=== PATIENT | male | born 1955 | race Caucasian/White ===

== ENCOUNTER 2018-03-10 09:48 | Emergency (ER) | payer OTHER | END 2018-03-10 11:32 | disposition home or self-care (01) | LOC: M ED 09:48 | DX: S93.601A Unspecified sprain of right foot, initial encounter (principal); W11.XXXA Fall on and from ladder, initial encounter; Y92.89 Other specified places as the place of occurrence of the external cause; E78.5 Hyperlipidemia, unspecified; Z98.890 Other specified postprocedural states; Z87.891 Personal history of nicotine dependence; Z88.8 Allergy status to other drugs, medicaments and biological substances; Z79.899 Other long term (current) drug therapy; M25.772 Osteophyte, left ankle; M77.31 Calcaneal spur, right foot; M25.771 Osteophyte, right ankle | CPT/HCPCS: 73610 ==

== ENCOUNTER → 2019-12-25 | Outpatient (CLI) | payer SELFPAY ==
[~2019-12-25] MED LIST: DICL75TA PO; LIPI20TA PO; PROT20TA11 PO
== END ==
LOC: M LABSMTC 11:22
PROVIDERS: ATTEND Pediatrics
DX: Z20.828 Contact with and (suspected) exposure to other viral communicable diseases (principal); Z11.59 Encounter for screening for other viral diseases